=== PATIENT | male | born 1940 | race Caucasian/White ===

== ENCOUNTER → 2016-12-12 | Outpatient (CLI) | payer MEDICARE ==
[2016-12-12 10:10] LABS: Basophils # (A) 0.1 k/uL (0-0.2); Basophils % (A) 1 %; CH 33.1; CHCM 33.2; Eosinophils # (A) 0.4 k/uL (0-0.7); Eosinophils % (A) 6 %; HCT 47.8 % (39.0-53.0); HDW 2.51; HGB 15.7 gm/dL (13.0-17.5); Luc # (Auto) 0.22; Luc % (Auto) 3; Lymphocytes # (A) 1.4 k/uL (1.0-4.8); Lymphocytes % (A) 19 %; MCH 32.9 pg (25.0-35.0); MCHC 32.8 g/dL (31.0-37.0); MCV 100.2 fL (80.0-100.0); Mean Platelet Volume 6.4; Monocytes # (A) 0.5 k/uL (0-1.0); Monocytes % (A) 6 %; Neutrophils # (A) 4.8 k/uL (1.3-7.7); Neutrophils % (A) 65 %; RBC 4.77 m/uL (4.30-5.90); RDW 12.7 % (11.5-15.5); WBC 7.4 k/uL (3.8-10.6); WBC (Perox) 6.78
[2016-12-12 10:12] LABS: Prothrombin Time 29.1 sec (9.0-12.0)
[2016-12-12 10:32] LABS: Hemoglobin A1C 5.7 % (4.2-6.1)
[2016-12-12 13:36] LABS: ALT 37 U/L (21-72); AST 29 U/L (17-59); Alkaline Phosphatase 72 U/L (38-126); Anion Gap 12 mmol/L; Blood Urea Nitrogen 23 mg/dL (9-20); Calcium 9.8 mg/dL (8.4-10.2); Carbon Dioxide 27 mmol/L (22-30); Chloride 107 mmol/L (98-107); Cholesterol 165 mg/dL (<200); Glucose 129 mg/dL (74-99); HDL Cholesterol 46 mg/dL (40-60); Non-African American GFR(MDRD) >60 (>60 ml/min/1.73 sqM); Potassium 4.4 mmol/L (3.5-5.1); Sodium 146 mmol/L (137-145); Total Bilirubin 1.2 mg/dL (0.2-1.3); Total Protein 7.3 g/dL (6.3-8.2); Triglycerides 80 mg/dL (<150)
== END | disposition home or self-care (01) ==
LOC: LABWHC1 09:31
PROVIDERS: ATTEND Internal Medicine Critical Care Medicine
DX: I48.91 Unspecified atrial fibrillation (principal); I10 Essential (primary) hypertension; E55.9 Vitamin D deficiency, unspecified; E78.5 Hyperlipidemia, unspecified; Z12.5 Encounter for screening for malignant neoplasm of prostate; Z79.899 Other long term (current) drug therapy
CPT/HCPCS: 84439; 80061; 80053; 83036; 84443; 85025; 85610; 82306; 36415; G0103

== ENCOUNTER → 2017-03-27 | Outpatient (CLI) | payer MEDICARE | END | disposition home or self-care (01) | LOC: LABWHC1 14:23 | PROVIDERS: ATTEND Urology | DX: R97.20 Elevated prostate specific antigen [PSA] (principal) | CPT/HCPCS: 36415; 84153 ==

== ENCOUNTER → 2017-04-28 | Outpatient (CLI) | payer MEDICARE ==
[2017-04-28 12:11] LABS: INR 2.7 (<1.2)
[2017-04-28 12:12] LABS: Prothrombin Time 25.9 sec (9.0-12.0)
== END | disposition home or self-care (01) ==
LOC: LABWHC1 11:22
PROVIDERS: ATTEND Internal Medicine Critical Care Medicine
DX: I48.91 Unspecified atrial fibrillation (principal)
CPT/HCPCS: 36415; 85610

== ENCOUNTER → 2017-12-15 | Outpatient (CLI) | payer MEDICARE ==
[2017-12-15 11:16] LABS: INR 3.1 (<1.2); Prothrombin Time 27.6 sec (9.0-12.0)
[2017-12-15 11:37] LABS: T4, Free (Free Thyroxine) 1.12 ng/dL (0.78-2.19)
[2017-12-15 11:51] LABS: PSA Annual Screen 5.24 ng/mL (0.00-4.00)
== END | disposition home or self-care (01) ==
LOC: LABWHC1 10:07
PROVIDERS: ATTEND Internal Medicine Critical Care Medicine
DX: E78.5 Hyperlipidemia, unspecified (principal); I10 Essential (primary) hypertension; M10.9 Gout, unspecified; I48.91 Unspecified atrial fibrillation; Z12.5 Encounter for screening for malignant neoplasm of prostate
CPT/HCPCS: 84439; 80061; 84443; 85610; 36415; G0103

== ENCOUNTER → 2018-01-18 | Outpatient (CLI) | payer MEDICARE ==
[2018-01-18 13:36] LABS: T4, Free (Free Thyroxine) 1.42 ng/dL (0.78-2.19)
== END | disposition home or self-care (01) ==
LOC: LABWHC1 11:54
PROVIDERS: ATTEND Internal Medicine Critical Care Medicine
DX: E05.90 Thyrotoxicosis, unspecified without thyrotoxic crisis or storm (principal)
CPT/HCPCS: 36415; 84439; 84443; 84481

== ENCOUNTER 2018-03-07 19:03 | Observation (INO) | payer MEDICARE ==
[2018-03-07] MEDS ORDERED: NITROGLYCERIN OINT 1 INCH/GM PACKET TOPICAL STA (19:40)
[2018-03-07] MEDS ORDERED: MORPHINE SULFATE 2 MG/ML SYRINGE IVP STA (19:40)
[2018-03-07] MEDS ORDERED: ONDANSETRON 4 MG/2 ML VIAL IVP STA (19:40)
[2018-03-07] MEDS ORDERED: SODIUM CHLORIDE 0.9% 1,000 ML IV STA (19:40)
[2018-03-07] MEDS ORDERED: ASPIRIN 81 MG PO STA (19:40)
[2018-03-07 19:49] LABS: Basophils # (A) 0.1 k/uL (0-0.2); Basophils % (A) 1 %; Eosinophils # (A) 0.3 k/uL (0-0.7); Eosinophils % (A) 4 %; HCT 48.1 % (39.0-53.0); HGB 16.3 gm/dL (13.0-17.5); Lymphocytes # (A) 1.8 k/uL (1.0-4.8); Lymphocytes % (A) 25 %; MCH 32.5 pg (25.0-35.0); MCHC 33.9 g/dL (31.0-37.0); MCV 95.9 fL (80.0-100.0); Mean Platelet Volume 7.1; Monocytes # (A) 0.5 k/uL (0-1.0); Monocytes % (A) 6 %; Neutrophils # (A) 4.5 k/uL (1.3-7.7); Neutrophils % (A) 61 %; Platelet Count 221 k/uL (150-450); RBC 5.01 m/uL (4.30-5.90); RDW 12.7 % (11.5-15.5); WBC 7.4 k/uL (3.8-10.6)
[2018-03-07 19:58] LABS: ALT 41 U/L (21-72); AST 36 U/L (17-59); Albumin 4.3 g/dL (3.5-5.0); Alkaline Phosphatase 76 U/L (38-126); Anion Gap 10 mmol/L; Blood Urea Nitrogen 14 mg/dL (9-20); Calcium 9.8 mg/dL (8.4-10.2); Carbon Dioxide 28 mmol/L (22-30); Chloride 101 mmol/L (98-107); Glucose 103 mg/dL (74-99); Magnesium 1.7 mg/dL (1.6-2.3); Potassium 3.5 mmol/L (3.5-5.1); Sodium 139 mmol/L (137-145); Total Bilirubin 0.9 mg/dL (0.2-1.3); Total Protein 7.4 g/dL (6.3-8.2)
[2018-03-07 20:01] LABS: Creatine Kinase 107 U/L (55-170)
[2018-03-07 20:05] LABS: D-Dimer 0.21 mg/L FEU (<0.60); INR 2.6 (<1.2); Partial Thromboplastin Time 30.8 sec (22.0-30.0); Prothrombin Time 23.7 sec (9.0-12.0)
[2018-03-07 20:14] LABS: Troponin I <0.012 ng/mL (0.000-0.034)
--- NOTE | 2018-03-07 20:14 | XR ---
EXAMINATION TYPE: XR chest 2V DATE OF EXAM: 03/07/2018 COMPARISON: NONE HISTORY: Intermittent chest pain. Partial right pneumonectomy. TECHNIQUE: Frontal and lateral views of the chest are obtained. FINDINGS: Right hemithorax loss from prior partial right pneumonectomy is noted. Overlying horizonta l right hemithorax skin folds are seen. There is no focal air space opacity, pleural effusion, or pne umothorax seen. The cardiac silhouette size is upper limits of normal in size. The osseous structu res are intact. IMPRESSION: Operative changes of a partial right pneumonectomy. No acute cardiopulmonary process.
[2018-03-07 20:18] LABS: Creatine Kinase MB 2.6 ng/mL (0.0-2.4)
[2018-03-07] MEDS ORDERED: MORPHINE SULFATE 2 MG/ML SYRINGE IVP PRN (20:28)
[2018-03-07] MEDS ORDERED: ACETAMINOPHEN TAB 325 MG TAB PO PRN (20:28)
[2018-03-07] MEDS ORDERED: NITROGLYCERIN SL TABS 0.4 MG TAB SUBLINGUAL PRN (20:28)
[2018-03-07] MEDS ORDERED: WARFARIN 2.5 MG TAB PO SCH (20:45)
--- NOTE | 2018-03-07 20:48 | ED ---
Chest Pain HPI - General Chief Complaint: Chest Pain Stated Complaint: Chest Pain Time Seen by Provider: 03/07/18 19:25 Source: patient Mode of arrival: wheelchair Limitations: no limitations - History of Present Illness Initial Comments: 77 years old male had chest pain episodes about to 4 from each one was less than 1 minute and this is a first-time ever he had a chest pain episodes he does have a history of atrial fibrillation he has been taken his Coumadin religiously also has a history of hypertension. And numb he had a lung surgery done 3 years ago where they thought lung cancer but it was a abscess. He denies any headaches no blurred vision and slurred speech no shortness of breath he does have a bit of worsening of the pain with deep breaths no abdominal pain no frequency urgency dysuria no symptoms of TIA or CVA - Related Data Home Medications Medication Instructions Recorded Confirmed Levothyroxine Sodium [Synthroid] 75 mcg PO DAILY 03/07/18 03/07/18 Losartan/Hydrochlorothiazide 1 each PO DAILY 03/07/18 03/07/18 [Losartan-Hctz 100-25 mg Tab] Metoprolol Ji/Hydrochlorothiaz 1 each PO DAILY 03/07/18 03/07/18 [Metoprolol ER-Hctz 100-12.5 mg] Warfarin Sodium [Coumadin] 2.5 mg PO Q7D 03/07/18 03/07/18 Warfarin [Coumadin] 5 mg PO DAILY 03/07/18 03/07/18 Allergies Allergy/AdvReac Type Severity Reaction Status Date / Time No Known Allergies Allergy Verified 03/07/18 19:09 Review of Systems ROS Statement: Those systems with pertinent positive or pertinent negative responses have been documented in the HPI. ROS Other: All systems not noted in ROS Statement are negative. EKG Findings - EKG Comments: EKG Findings:: EKG is atrial fibrillation ventricular rate is 87 PA interval, QRS duration is 108 QT/QTc is 394/474 review of this EKG does not reveal any ST elevation or ST depression and atrial fibrillation is not new patient has a history of atrial fibrillation Past Medical History Past Medical History: Atrial Fibrillation, Hypertension, Thyroid Disorder History of Any Multi-Drug Resistant Organisms: None Reported Past Surgical History: Orthopedic Surgery Additional Past Surgical History / Comment(s): right lung removed Past Psychological History: No Psychological Hx Reported Smoking Status: Former smoker Past Alcohol Use History: Daily Past Drug Use History: None Reported General Exam - General Exam Comments Initial Comments: General: The patient is awake and alert, in no distress, and does not appear acutely ill. GCS is 15 Skin: Skin is warm and dry and no rashes or lesions are noted. Eye: Pupils are equal, round and reactive to light, extra-ocular movements are intact; there is normal conjunctiva bilaterally. Ears, nose, mouth and throat: There are moist mucous membranes and no oral lesions. Neck: The neck is supple, there is no tenderness him a no signs of any meningitis Cardiovascular: Noticed atrial fibrillation Respiratory: To auscultation bilateral, no rales rhonchi's noticed Gastrointestinal: Soft, non-distended, non-tender abdomen without masses or organomegaly noted. There is no rebound or guarding present. Bowel sounds are unremarkable. Back: There is no tenderness to palpation in the midline. There is no obvious deformity. Musculoskeletal: Normal ROM, no tenderness, There is no pedal edema. There is no calf tenderness or swelling. No cords were appreciated. Neurological: CN II-XII intact, Cranial nerves III through XII are intact. There are no obvious motor or sensory deficits. Coordination appears grossly intact. Speech is normal. Psychiatric: Cooperative, appropriate mood & affect, normal judgment. Limitations: no limitations Course Vital Signs 03/07/18 03/07/18 19:06 19:31 Temperature 97.9 F Pulse Rate 75 88 Respiratory 18 18 Rate Blood Pressure 164/99 176/108 O2 Sat by Pulse 98 99 Oximetry Patient is reassessed at term 824, EKG has atrial fibrillation d-dimer is unremarkable INR is 2.6 troponin is negative compressive metabolic panel and CBC are unremarkable chest x-ray ruled out any pneumothorax or pneumonia. His findings were discussed with the patient considering he is 77 and now he has a history of atrial fibrillation and hypertension and now 4-5 episodes of chest pain though it didn't last long we need to admit him for cardiology consult and 3 sets of cardiac markers and Patient agreed with that . Her Dr. Waters patient be admitted to .( Dr Rees) Disposition Clinical Impression: Chest pain Disposition: ADMITTED IP TO THIS HOSP Condition: Good Referrals: Av Butler DO [Primary Care Provider] - 1-2 days
[2018-03-07 22:15] VITALS: RESP 18
[2018-03-07 23:53] LABS: Cholesterol 184 mg/dL (<200); HDL Cholesterol 41 mg/dL (40-60); LDL Cholesterol,Calculated 83 mg/dL (0-99); Triglycerides 300 mg/dL (<150)
[2018-03-08 01:34] LABS: Creatine Kinase MB 1.7 ng/mL (0.0-2.4)
[2018-03-08 07:03] VITALS: TEMP 98.2
[2018-03-08 08:00] LABS: Creatine Kinase 76 U/L (55-170)
[2018-03-08] MEDS ORDERED: WARFARIN 2.5 MG TAB PO SCH (08:01)
[2018-03-08 08:13] LABS: Creatine Kinase MB 1.7 ng/mL (0.0-2.4); Troponin I <0.012 ng/mL (0.000-0.034)
--- NOTE | 2018-03-08 08:38 | P.CRDCN ---
History of Present Illness Consult date: 03/08/18 Chief complaint: Chest discomfort History of present illness: This is a pleasant 77-year-old gentleman with a past medical history significant for chronic atrial fibrillation on oral anticoagulation was Coumadin as well as history of lung cancer where he underwent lung surgery long time ago, presented to the hospital complaining of chest discomfort. The patient does not have any established history of coronary artery disease nor diabetes. He does follows Dr. VC Guzman in the office on regular basis. He was in his usual state of health until yesterday when he was at home watching TV and developed chest discomfort, over the left side of the chest, as a sharp kind of discomfort, lasted only for a few seconds. He did not have any shortness of breath, sweating, nausea or vomiting, dizziness or lightheadedness , or syncope. No more episode of chest discomfort since the first one. The EKG showed atrial fibrillation. The cardiac enzymes were checked and came in to be unremarkable. The chest x-ray did not show any acute abnormalities. The patient was ruled out for acute coronary event. The patient did have a stress test about 2 weeks ago in our office. He expressed the wishes that he would like to go home. He has been walking up and around and he has been pain- free. I feel that the patient can be discharged home and he will follow-up with Dr. VC Guzman in the office as an outpatient. Past Medical History Past Medical History: Atrial Fibrillation, Hypertension, Thyroid Disorder History of Any Multi-Drug Resistant Organisms: None Reported Past Surgical History: Orthopedic Surgery Additional Past Surgical History / Comment(s): right lung removed Past Psychological History: No Psychological Hx Reported Smoking Status: Former smoker Past Alcohol Use History: Daily Past Drug Use History: None Reported Medications and Allergies Home Medications Medication Instructions Recorded Confirmed Type Levothyroxine Sodium [Synthroid] 75 mcg PO HS 03/07/18 03/08/18 History Losartan/Hydrochlorothiazide 1 tab PO DAILY 03/07/18 03/08/18 History [Losartan-Hctz 100-25 mg Tab] Warfarin Sodium [Coumadin] 2.5 mg PO TU 03/07/18 03/08/18 History Warfarin [Coumadin] 5 mg PO SUMOWETHFRSA 03/07/18 03/08/18 History Metoprolol Succinate (ER) [Toprol 100 mg PO DAILY 03/08/18 03/08/18 History Xl] Allergies Allergy/AdvReac Type Severity Reaction Status Date / Time No Known Allergies Allergy Verified 03/08/18 07:37 Physical Exam Vitals: Vital Signs Temp Pulse Resp BP Pulse Ox 03/08/18 07:14 97 03/08/18 07:01 98.2 F 74 18 148/94 97 03/08/18 05:20 96.9 F L 86 18 159/82 98 03/08/18 01:20 97.1 F L 91 18 167/94 97 03/07/18 22:13 97.5 F L 61 18 150/87 99 03/07/18 20:59 77 16 154/92 98 03/07/18 20:19 82 18 166/96 98 03/07/18 19:31 88 18 176/108 99 03/07/18 19:06 97.9 F 75 18 164/99 98 Intake and Output 03/07/18 03/08/18 03/08/18 22:59 06:59 14:59 Other: # Voids 2 2 Weight 102.058 kg - Constitutional General appearance: no acute distress - Respiratory Respiratory: right: diminished, left: CTA - Cardiovascular Rhythm: irregularly irregular Heart sounds: normal: S1, S2 Abnormal Heart Sounds: systolic murmur Results 03/07/18 19:20 03/07/18 19:20 Cardiac Enzymes 03/07/18 03/07/18 03/08/18 Range/Units 19:20 19:20 00:58 AST 36 (17-59) U/L CK-MB (CK-2) 2.6 H* 1.7 (0.0-2.4) ng/mL Troponin I <0.012 Cancelled (0.000-0.034) ng/mL 03/08/18 03/08/18 Range/Units 02:10 07:19 AST (17-59) U/L CK-MB (CK-2) 1.7 (0.0-2.4) ng/mL Troponin I <0.012 <0.012 (0.000-0.034) ng/mL Coagulation 03/07/18 Range/Units 19:20 PT 23.7 H (9.0-12.0) sec APTT 30.8 H (22.0-30.0) sec Lipids 03/07/18 Range/Units 19:20 Triglycerides 300 H (<150) mg/dL Cholesterol 184 (<200) mg/dL HDL Cholesterol 41 (40-60) mg/dL CBC 03/07/18 Range/Units 19:20 WBC 7.4 (3.8-10.6) k/uL RBC 5.01 (4.30-5.90) m/uL Hgb 16.3 (13.0-17.5) gm/dL Hct 48.1 (39.0-53.0) % Plt Count 221 (150-450) k/uL Comprehensive Metabolic Panel 03/07/18 Range/Units 19:20 Sodium 139 (137-145) mmol/L Potassium 3.5 (3.5-5.1) mmol/L Chloride 101 (98-107) mmol/L Carbon Dioxide 28 (22-30) mmol/L BUN 14 (9-20) mg/dL Creatinine 0.92 (0.66-1.25) mg/dL Glucose 103 H (74-99) mg/dL Calcium 9.8 (8.4-10.2) mg/dL AST 36 (17-59) U/L ALT 41 (21-72) U/L Alkaline Phosphatase 76 (38-126) U/L Total Protein 7.4 (6.3-8.2) g/dL Albumin 4.3 (3.5-5.0) g/dL Current Medications Generic Name Dose Route Start Last Admin Trade Name Freq PRN Reason Stop Dose Admin Acetaminophen 650 mg 03/07/18 20:28 Tylenol Tab PO Q4HR PRN Pain Amlodipine Besylate 5 mg 03/08/18 09:00 Norvasc PO DAILY [facility] Aspirin 325 mg 03/08/18 09:00 Aspirin PO DAILY [facility] HCTZ/Losartan Potassium 2 each 03/08/18 09:00 Hyzaar 50-12.5 PO DAILY [facility] Hydrochlorothiazide 12.5 mg 03/08/18 09:00 Hydrodiuril PO Mo [facility] Levothyroxine Sodium 75 mcg 03/08/18 09:00 Synthroid PO DAILY@0630 [facility] Metoprolol Succinate 100 mg 03/08/18 09:00 Toprol Xl PO Mo [facility] Morphine Sulfate 2 mg 03/07/18 20:28 Morphine Sulfate (Inj) IVP Q5M PRN Chest Pain Nitroglycerin 0.4 mg 03/07/18 20:28 Nitrostat SUBLINGUAL Q5M PRN Chest Pain Warfarin Sodium 5 mg 03/08/18 18:00 Coumadin PO SuMoWeThFrSa@1800 [facility] Warfarin Sodium 2.5 mg 03/08/18 08:01 Coumadin PO Tu@1800 [facility] Intake and Output 03/07/18 03/08/18 03/08/18 22:59 06:59 14:59 Other: # Voids 2 2 Weight 102.058 kg 03/07/18 19:20 03/07/18 19:20 Assessment and Plan Assessment: Assessment #1 atypical chest discomfort #2 chronic atrial fibrillation #3 history of lung cancer Plan #1 the patient was ruled out for acute coronary event #2 from a perivascular standpoint of view, he can be discharged home. The patient expressed the wishes that he would like to go home. Thank you for allowing us participate in his care
[2018-03-08] MEDS ORDERED: LEVOTHYROXINE 75 MCG TAB PO SCH (09:00)
[2018-03-08] MEDS ORDERED: ASPIRIN 325 MG TAB PO SCH (09:00)
[2018-03-08] MEDS ORDERED: LOSARTAN-HCTZ 50-12.5 MG 1 EACH TAB PO SCH (09:00)
[2018-03-08] MEDS ORDERED: METOPROLOL SUCCINATE (ER) 100 MG TAB.ER.24H PO SCH (09:00)
[2018-03-08] MEDS ORDERED: HYDROCHLOROTHIAZIDE 12.5 MG CAP PO SCH (09:00)
[2018-03-08] MEDS ORDERED: amLODIPine 5 MG TAB PO SCH (09:00)
[2018-03-08 09:21] VITALS: BP 149/89; PULSE 95
--- NOTE | 2018-03-08 10:38 | P.HPIM ---
History of Present Illness This is a pleasant 77 years old male with past medical history of atrial fibrillation's on Coumadin, hypertension, hypothyroidism who presents of chest discomfort/pain, patient states his pains lasted only for 2 seconds on the left side of his chest nonradiating unknown severity, nonspecific character, not associated with dyspnea. No change in urine or bowel habits. No fever. No dizziness or palpitation. No sweating. Patient currently is chest pain-free. No other complaints. Patient has been evaluated by punch card operator and cleared him for discharge. Patient states his back to his baseline and he wants to go home. Vital's labs and medication were viewed, patient to continue his home medication Review of Systems CONSTITUTIONAL: No fever, no malaise, no fatigue. HEENT: No recent visual problems or hearing problems. Denied any sore throat. CARDIOVASCULAR: No orthopnea, PND, no palpitations, no syncope. PULMONARY: No shortness of breath, no cough, no hemoptysis. GASTROINTESTINAL: No diarrhea, no nausea, no vomiting, no abdominal pain. Normoactive bowel sounds. NEUROLOGICAL: No headaches, no weakness, no numbness. HEMATOLOGICAL: Denies any bleeding or petechiae. GENITOURINARY: Denies any burning micturition, frequency, or urgency. MUSCULOSKELETAL/RHEUMATOLOGICAL: Denies any joint pain, swelling, or any muscle pain. ENDOCRINE: Denies any polyuria or polydipsia. Past Medical History Past Medical History: Atrial Fibrillation, Hypertension, Thyroid Disorder History of Any Multi-Drug Resistant Organisms: None Reported Past Surgical History: Orthopedic Surgery Additional Past Surgical History / Comment(s): right lung removed Past Psychological History: No Psychological Hx Reported Smoking Status: Former smoker Past Alcohol Use History: Daily Past Drug Use History: None Reported Medications and Allergies Home Medications Medication Instructions Recorded Confirmed Type Levothyroxine Sodium [Synthroid] 75 mcg PO HS 03/07/18 03/08/18 History Losartan/Hydrochlorothiazide 1 tab PO DAILY 03/07/18 03/08/18 History [Losartan-Hctz 100-25 mg Tab] Warfarin Sodium [Coumadin] 2.5 mg PO TU 03/07/18 03/08/18 History Warfarin [Coumadin] 5 mg PO SUMOWETHFRSA 03/07/18 03/08/18 History Metoprolol Succinate (ER) [Toprol 100 mg PO DAILY 03/08/18 03/08/18 History XL] amLODIPine [Norvasc] 5 mg PO DAILY #30 tab 03/08/18 Rx Allergies Allergy/AdvReac Type Severity Reaction Status Date / Time No Known Allergies Allergy Verified 03/08/18 07:37 Physical Exam Vitals: Vital Signs Temp Pulse Pulse Resp BP BP Pulse Ox 03/08/18 09:20 95 18 149/89 98 03/08/18 07:14 97 03/08/18 07:01 98.2 F 74 18 148/94 97 03/08/18 05:20 96.9 F L 86 18 159/82 98 03/08/18 01:20 97.1 F L 91 18 167/94 97 03/07/18 22:13 97.5 F L 61 18 150/87 99 03/07/18 20:59 77 16 154/92 98 03/07/18 20:19 82 18 166/96 98 03/07/18 19:31 88 18 176/108 99 03/07/18 19:06 97.9 F 75 18 164/99 98 Intake and Output 03/07/18 03/08/18 03/08/18 22:59 06:59 14:59 Other: # Voids 2 2 Weight 102.058 kg GENERAL: The patient is alert and oriented x3, not in any acute distress. Well developed, well nourished. HEENT: Pupils are round and equally reacting to light. EOMI. No scleral icterus. No conjunctival pallor. Normocephalic, atraumatic. No pharyngeal erythema. No thyromegaly. CARDIOVASCULAR: S1 and S2 present. No murmurs, rubs, or gallops. PULMONARY: Chest is clear to auscultation, no wheezing or crackles. ABDOMEN: Soft, nontender, nondistended, normoactive bowel sounds. No palpable organomegaly. MUSCULOSKELETAL: No joint swelling or deformity. EXTREMITIES: No cyanosis, clubbing, or pedal edema. NEUROLOGICAL: Gross neurological examination did not reveal any focal deficits. SKIN: No rashes. Results CBC & Chem 7: 03/07/18 19:20 03/07/18 19:20 Labs: Abnormal Lab Results - Last 24 Hours (Table) 03/07/18 03/07/18 03/07/18 Range/Units 19:20 19:20 19:20 PT 23.7 H (9.0-12.0) sec INR 2.6 H (<1.2) APTT 30.8 H (22.0-30.0) sec Glucose 103 H (74-99) mg/dL CK-MB (CK-2) 2.6 H* (0.0-2.4) ng/mL Triglycerides (<150) mg/dL 03/07/18 Range/Units 19:20 PT (9.0-12.0) sec INR (<1.2) APTT (22.0-30.0) sec Glucose (74-99) mg/dL CK-MB (CK-2) (0.0-2.4) ng/mL Triglycerides 300 H (<150) mg/dL Assessment and Plan Assessment: Chest pain, of 2 seconds. Resolved completely History of chronic atrial fibrillation Hypertension Hypothyroidism Plan: Continue with same treatment. Continue with symptomatic treatment. Resume home medication. Resume Coumadin and follow up INR. Cardiology consult is appreciated. Further recommendations based on the clinical course. Patient was cleared by cardiology for discharge
--- NOTE | 2018-03-08 10:42 | P.DS ---
Providers Date of admission: 03/07/18 20:50 Attending physician: Dee Stephenson MD Consults: 03/07/18 20:28 Consult Physician Urgent Consulting Provider: Jaylen Waters Consult Reason/Comments: Chronic lung disease Do you want consulting provider notified?: Yes Consult Physician Urgent Consulting Provider: Param Witt Consult Reason/Comments: Chest pain Do you want consulting provider notified?: Yes Primary care physician: [facility] Course: This is a pleasant 77 years old male with past medical history of atrial fibrillation, hypertension, hypothyroidism. He presents because of 2 seconds duration of chest pain on the left side which was resolved completely. He has negative troponins. EKG was reviewed by the jawbone puller. He has negative stress test in the cardiology office as per note. Cardiology evaluated the patient in the recommended that he can be discharged home. Patient wants to go home. Patient states he wants back to his baseline. Cardiology cleared him for discharge. Problems and management plan discussed with the patient. Patient is found stable and can be discharged home however he needs follow-up as an outpatient and he has appointment to see his PCP Dr. Butler, and jawbone puller Dr. Pratt, This week and he has the appointment details and contact information at home See examination from today Time spent more than 35 minutes Patient Condition at Discharge: Good Plan - Discharge Summary New Discharge Prescriptions: New amLODIPine [Norvasc] 5 mg PO DAILY #30 tab Continue Warfarin [Coumadin] 5 mg PO SUMOWETH Levothyroxine Sodium [Synthroid] 75 mcg PO HS Warfarin Sodium [Coumadin] 2.5 mg PO TU Losartan/Hydrochlorothiazide [Losartan-Hctz 100-25 mg Tab] 1 tab PO DAILY Metoprolol Succinate (ER) [Toprol XL] 100 mg PO DAILY Discharge Medication List Levothyroxine Sodium [Synthroid] 75 mcg PO HS 03/07/18 [History] Losartan/Hydrochlorothiazide [Losartan-Hctz 100-25 mg Tab] 1 tab PO DAILY [History] Warfarin Sodium [Coumadin] 2.5 mg PO TU 03/07/18 [History] Warfarin [Coumadin] 5 mg PO SUMOWETHFRSA 03/07/18 [History] Metoprolol Succinate (ER) [Toprol XL] 100 mg PO DAILY 03/08/18 [History] amLODIPine [Norvasc] 5 mg PO DAILY #30 tab 03/08/18 [Rx] Follow up Appointment(s)/Referral(s): Av Butler DO [Primary Care Provider] - 3 Days Finn Guzman MD [Family Provider] - 1 Week Ambulatory/Diagnostic Orders: Prothrombin Time INR [LAB.AMB] Time Frame: 3 Days, Location: None Selected Patient Instructions/Handouts: Amlodipine (By mouth), Chest Pain (DC) Activity/Diet/Wound Care/Special Instructions: Diet: low cholesterol, cardiac Activity: limited till F/U
[2018-03-08] MEDS ORDERED: WARFARIN 5 MG TAB PO SCH (18:00)
== END 2018-03-08 10:45 | disposition home or self-care (01) ==
LOC: EC 19:03 → 3OBS 20:50
PROVIDERS: ADMIT Internal Medicine; ATTEND Internal Medicine
DX: R07.89 Other chest pain (principal); I48.2 Chronic atrial fibrillation; I10 Essential (primary) hypertension; E03.9 Hypothyroidism, unspecified; Z79.01 Long term (current) use of anticoagulants; Z79.890 Hormone replacement therapy; Z79.899 Other long term (current) drug therapy; Z90.2 Acquired absence of lung [part of]; Z87.891 Personal history of nicotine dependence; Z85.118 Personal history of other malignant neoplasm of bronchus and lung
CPT/HCPCS: 99285 ×2; 36415; 94760; 93005 ×2; 85379; 80061; 80053; 82550 ×2; 82553 ×2; 83735; 84443; 84484 ×2; 85025; 85610; 85730; 71046; G0378 ×2

== ENCOUNTER → 2018-12-03 | Outpatient (CLI) | payer MEDICARE ==
[2018-12-03 10:21] LABS: Basophils # (A) 0.1 k/uL (0-0.2); Basophils % (A) 1 %; Eosinophils # (A) 0.3 k/uL (0-0.7); Eosinophils % (A) 5 %; HGB 16.2 gm/dL (13.0-17.5); Lymphocytes # (A) 1.2 k/uL (1.0-4.8); Lymphocytes % (A) 19 %; MCH 32.5 pg (25.0-35.0); MCV 98.3 fL (80.0-100.0); Mean Platelet Volume 6.9; Monocytes # (A) 0.4 k/uL (0-1.0); Monocytes % (A) 6 %; Neutrophils # (A) 4.3 k/uL (1.3-7.7); Neutrophils % (A) 66 %; Platelet Count 221 k/uL (150-450); RBC 4.99 m/uL (4.30-5.90); WBC 6.5 k/uL (3.8-10.6)
[2018-12-03 16:43] LABS: Albumin 4.2 g/dL (3.80-4.90); Albumin/Globulin Ratio 1.68 (1.60-3.17); Anion Gap 9.8 mmol/L (4.00-12.00); Calcium 9.7 mg/dL (8.7-10.3); Carbon Dioxide 28.2 mmol/L (21.6-31.8); Globulin 2.5 g/dL (1.6-3.3); LDL Cholesterol,Calculated 100.2 mg/dL (0.0-131.0); Potassium 3.5 mmol/L (3.5-5.5); Total Bilirubin 1.6 mg/dL (0.2-1.2); Total Protein 6.7 g/dL (6.2-8.2); Uric Acid 6.1 mg/dL (3.7-8.7); VLDL Calculation 20.8 mg/dL (5.00-40.00)
[2018-12-03 16:51] LABS: T4, Free (Free Thyroxine) 1.3 ng/dL (0.80-1.80)
== END | disposition home or self-care (01) ==
LOC: LABWHC1 09:22
PROVIDERS: ATTEND Internal Medicine Critical Care Medicine
DX: I48.91 Unspecified atrial fibrillation (principal); E78.5 Hyperlipidemia, unspecified; M10.9 Gout, unspecified; E03.9 Hypothyroidism, unspecified
CPT/HCPCS: 84439; 80061; 80053; 84443; 84550; 85025; 82306; 83036; 36415; G0103

== ENCOUNTER → 2020-01-13 | Outpatient (CLI) | payer MEDICARE ==
[2020-01-13 11:29] LABS: Basophils # (A) 0.1 k/uL (0-0.2); Basophils % (A) 1 %; Eosinophils # (A) 0.4 k/uL (0-0.7); Eosinophils % (A) 5 %; HCT 47.7 % (39.0-53.0); HGB 15.8 gm/dL (13.0-17.5); Lymphocytes # (A) 1.4 k/uL (1.0-4.8); Lymphocytes % (A) 20 %; MCH 32.9 pg (25.0-35.0); MCHC 33.2 g/dL (31.0-37.0); Mean Platelet Volume 6.9; Monocytes # (A) 0.5 k/uL (0-1.0); Monocytes % (A) 7 %; Neutrophils # (A) 4.5 k/uL (1.3-7.7); Neutrophils % (A) 65 %; Platelet Count 232 k/uL (150-450); RBC 4.82 m/uL (4.30-5.90); RDW 12.9 % (11.5-15.5); WBC 6.9 k/uL (3.8-10.6)
[2020-01-13 11:36] LABS: INR 3.2 (<1.2); Prothrombin Time 31.1 sec (9.0-12.0)
[2020-01-13 16:54] LABS: African American GFR (CKD) 93.2 (60.0-200.0); Albumin 4.1 g/dL (3.80-4.90); Albumin/Globulin Ratio 1.64 (1.60-3.17); Anion Gap 13.5 mmol/L (4.00-12.00); BUN/Creat Ratio 14.44 Ratio (12.00-20.00); Bilirubin, Conjugated 0.5 mg/dL (0.20-0.40); Calcium 9.4 mg/dL (8.7-10.3); Carbon Dioxide 23.5 mmol/L (21.6-31.8); Chol/HDL Ratio 3.21; Globulin 2.5 g/dL (1.6-3.3); LDL Cholesterol,Calculated 89.4 mg/dL (0.0-131.0); Non-African American GFR(CKD) 80.4 (60.0-200.0); Potassium 3.6 mmol/L (3.5-5.5); Total Bilirubin 1.5 mg/dL (0.2-1.2); Total Protein 6.6 g/dL (6.2-8.2); VLDL Calculation 14.6 mg/dL (5.00-40.00)
[2020-01-13 17:01] LABS: T4, Free (Free Thyroxine) 1.4 ng/dL (0.80-1.80)
[2020-01-13 17:25] LABS: Hemoglobin A1C 5.9 % (4.0-6.0)
== END | disposition home or self-care (01) ==
LOC: LABWHC1 09:42
PROVIDERS: ATTEND Urology
DX: Z00.00 Encounter for general adult medical examination without abnormal findings (principal); Z79.01 Long term (current) use of anticoagulants; E78.5 Hyperlipidemia, unspecified; E03.9 Hypothyroidism, unspecified; R97.20 Elevated prostate specific antigen [PSA]
CPT/HCPCS: 36415; 80053; 80061; 82248; 83036; 84153; 84439; 84443; 85025; 85610

== ENCOUNTER → 2020-12-17 | Outpatient (CLI) | payer MEDICARE | END | disposition home or self-care (01) | LOC: LABWHC1 10:00 | PROVIDERS: ATTEND Urology | DX: Z00.00 Encounter for general adult medical examination without abnormal findings (principal); E78.5 Hyperlipidemia, unspecified; I10 Essential (primary) hypertension; E55.9 Vitamin D deficiency, unspecified; R97.20 Elevated prostate specific antigen [PSA]; Z79.899 Other long term (current) drug therapy | CPT/HCPCS: 36415; 84153 ==

== ENCOUNTER → 2020-12-31 | Outpatient (CLI) | payer MEDICARE ==
[2020-12-31 16:00] LABS: Basophils # (A) 0.06 X 10*3/uL (0.00-0.10); Basophils % (A) 0.8 %; Eosinophils # (A) 0.47 X 10*3/uL (0.04-0.35); Eosinophils % (A) 6.3 %; HCT 46.9 % (39.6-50.0); HGB 14.9 g/dL (13.0-17.0); Lymphocytes # (A) 1.61 X 10*3/uL (0.90-5.00); Lymphocytes % (A) 21.5 %; MCH 32.3 pg (27.0-32.0); MCHC 31.8 g/dL (32.0-37.0); MCV 101.7 fL (80.0-97.0); Mean Platelet Volume 9.8 fL (9.5-12.2); Monocytes # (A) 0.58 X 10*3/uL (0.20-1.00); Monocytes % (A) 7.7 %; Neutrophils # (A) 4.76 X 10*3/uL (1.80-7.70); Neutrophils % (A) 63.4 %; Platelet Count 214 X 10*3/uL (140-440); RBC 4.61 X 10*6/uL (4.40-5.60); RDW 12.4 % (11.5-14.5)
[2020-12-31 18:52] LABS: African American GFR (CKD) 92.5 (60.0-200.0); Albumin 4.2 g/dL (3.80-4.90); Albumin/Globulin Ratio 1.5 (1.60-3.17); Anion Gap 9.6 mmol/L (4.00-12.00); BUN/Creat Ratio 12.22 Ratio (12.00-20.00); Calcium 9.9 mg/dL (8.7-10.3); Carbon Dioxide 26.4 mmol/L (21.6-31.8); Chol/HDL Ratio 3.02; Globulin 2.8 g/dL (1.6-3.3); LDL Cholesterol,Calculated 86.4 mg/dL (0.0-131.0); Non-African American GFR(CKD) 79.8 (60.0-200.0); Potassium 3.9 mmol/L (3.5-5.5); VLDL Calculation 12.6 mg/dL (5.00-40.00)
[2020-12-31 19:00] LABS: T4, Free (Free Thyroxine) 1.2 ng/dL (0.80-1.80)
== END | disposition home or self-care (01) ==
LOC: LABWHC1 08:53
PROVIDERS: ATTEND Internal Medicine Critical Care Medicine
DX: Z00.00 Encounter for general adult medical examination without abnormal findings (principal); I48.91 Unspecified atrial fibrillation; I10 Essential (primary) hypertension; M10.9 Gout, unspecified; E78.5 Hyperlipidemia, unspecified; E03.9 Hypothyroidism, unspecified; M19.079 Primary osteoarthritis, unspecified ankle and foot
CPT/HCPCS: 36415; 80053; 80061; 82306; 83036; 84439; 84443; 85025

== ENCOUNTER → 2021-06-03 | Outpatient (CLI) | payer MEDICARE | END | disposition home or self-care (01) | LOC: LABWHC1 13:13 | PROVIDERS: ATTEND Radiology Radiation Oncology | DX: C61 Malignant neoplasm of prostate (principal) | CPT/HCPCS: 36415; 84153 ==

== ENCOUNTER → 2021-12-11 | Outpatient (CLI) | payer MEDICARE ==
[2021-12-11 14:50] LABS: Basophils # (A) 0.04 X 10*3/uL (0.00-0.10); Basophils % (A) 0.7 %; Eosinophils # (A) 0.38 X 10*3/uL (0.04-0.35); Eosinophils % (A) 6.6 %; HCT 42.1 % (39.6-50.0); HGB 13.8 g/dL (13.0-17.0); Immature Grans, Automated 0.2 %; Lymphocytes # (A) 1.02 X 10*3/uL (0.90-5.00); Lymphocytes % (A) 17.8 %; MCH 33.7 pg (27.0-32.0); MCHC 32.8 g/dL (32.0-37.0); MCV 102.7 fL (80.0-97.0); Mean Platelet Volume 9.9 fL (9.5-12.2); Monocytes # (A) 0.63 X 10*3/uL (0.20-1.00); NRBC Per 100 WBC 0 /100 WBCS (0.0-0.0); Neutrophils # (A) 3.66 X 10*3/uL (1.80-7.70); Neutrophils % (A) 63.7 %; Platelet Count 185 X 10*3/uL (140-440); RDW 12.3 % (11.5-14.5); WBC 5.74 X 10*3/uL (4.50-10.00)
[2021-12-11 15:51] LABS: African American GFR (CKD) 94.5 (60.0-200.0); Albumin 4.2 g/dL (3.8-4.9); Albumin/Globulin Ratio 1.63 (1.60-3.17); Blood Urea Nitrogen 12.6 mg/dL (9.0-27.0); Calcium 9.7 mg/dL (8.7-10.3); Carbon Dioxide 28.2 mmol/L (20.0-27.5); Globulin 2.6 g/dL (1.6-3.3); HDL Cholesterol 53.8 mg/dL (40.00-60.00); Non-African American GFR(CKD) 81.5 (60.0-200.0); Potassium 4.2 mmol/L (3.5-5.5); T4, Free (Free Thyroxine) 1.76 ng/dL (0.800-1.800); Total Bilirubin 0.8 mg/dL (0.30-1.20); Total Protein 6.8 g/dL (6.2-8.2); Triglycerides 41.2 mg/dL (0.00-149.00)
[2021-12-11 16:14] LABS: Chol/HDL Ratio 2.71 Ratio; LDL Cholesterol,Direct Reflex 82.7 mg/dL (0.00-129.00)
== END | disposition home or self-care (01) ==
LOC: LABWHC1 08:35
PROVIDERS: ATTEND Internal Medicine Critical Care Medicine
DX: I10 Essential (primary) hypertension (principal); I48.91 Unspecified atrial fibrillation; E78.5 Hyperlipidemia, unspecified; E55.9 Vitamin D deficiency, unspecified; E03.9 Hypothyroidism, unspecified; M10.9 Gout, unspecified
CPT/HCPCS: 36415; 80053; 80061; 82306; 83036; 83721; 84439; 84443; 85025

== ENCOUNTER → 2021-12-24 | Outpatient (CLI) | payer MEDICARE | END | disposition home or self-care (01) | LOC: LABWHC1 09:03 | PROVIDERS: ATTEND Radiology Radiation Oncology | DX: C61 Malignant neoplasm of prostate (principal); R97.20 Elevated prostate specific antigen [PSA] | CPT/HCPCS: 36415; 84153 ==

== ENCOUNTER → 2022-04-08 | Outpatient (CLI) | payer MEDICARE | END | disposition home or self-care (01) | LOC: LABWHC1 15:31 | PROVIDERS: ATTEND Radiology Radiation Oncology | DX: C61 Malignant neoplasm of prostate (principal); R97.20 Elevated prostate specific antigen [PSA] | CPT/HCPCS: 36415; 84153 ==

== ENCOUNTER 2022-06-09 11:27 | Emergency (ER) | payer MEDICARE ==
--- NOTE | 2022-06-09 13:01 | ED ---
General Adult HPI - General Chief complaint: Abdominal Pain Stated complaint: possible hernia Time Seen by Provider: 06/09/22 12:29 Source: patient Mode of arrival: ambulatory Limitations: no limitations - History of Present Illness Initial comments: Dictation was produced using [employer] dictation software. please excuse any grammatical, word or spelling errors. Chief Complaint: 81-year-old male presents emergency department for concerns of hernia History of Present Illness: Patient is a 1-year-old male presents emergency department for right groin hernia. Patient states that he was told by his primary care doctor that he had a right groin hernia. He was not given any follow-up. He decided come to the emergency department today to be evaluated. Patient denies any nausea or vomiting. No abdominal pain. No diarrhea. Maki ent has any active pain at this time. He states that his symptoms are worse whenever he tries to ambulate. No urinary symptoms. The ROS documented in this emergency department record has been reviewed and confirmed by me. Those systems with pertinent positive or negative responses have been documented in the HPI. All other systems are other negative and/or noncontributory. PHYSICAL EXAM: General Impression: Alert and oriented x3, not in acute distress HEENT: Normocephalic atraumatic, extra-ocular movements intact, pupils equal and reactive to light bilaterally, mucous membranes moist. Cardiovascular: Heart regular rate and rhythm Chest: Able to complete full sentences, no retractions, no tachypnea Abdomen: abdomen soft, non-tender, non-distended, no organomegaly, small palpable mass to the right groin with Valsalva, mass does produce while laying supine Musculoskeletal: Pulses present and equal in all extremities, no peripheral edema Motor: no focal deficits noted Neurological: CN II-XII grossly intact, no focal motor or sensory deficits noted Skin: Intact with no visualized rashes Psych: Normal affect and mood ED course: 81-year-old male presents emergency Department with groin pain and suspected right groin hernia. Signs upon arrival are within acceptable limits. Patient does not have any features of abdominal emergency related to hernia. He is well-appearing at the bedside without any signs of incarceration or strangulation. Laboratory evaluation obtained. CBC, metabolic panel, abdominal labs are negative. Ultrasound of the groin shows fat-containing hernia at the right groin that increases in size with Valsalva. Abdomen evaluation obtained. CBC, metabolic abdominal labs are negative. No lifting acidosis. Ultrasound of the groin shows fat-containing right inguinal hernia is more prominent with Valsalva. Patient reevaluated at bedside 5 in stable medical condition. Patient be discharged. He does have an appointment with general surgery. Advise patient to obtain a hernia belt to help with the symptoms. Return precautions discussed. Patient agreed with discharge. - Related Data Home Medications Medication Instructions Recorded Confirmed Levothyroxine Sodium [Synthroid] 75 mcg PO DAILY@0600 03/07/18 06/09/22 Cholecalciferol [Vitamin D3 (125 125 mcg PO DAILY 06/09/22 06/09/22 Mcg = 5000 Iu)] Losartan Potassium [Cozaar] 100 mg PO DAILY 06/09/22 06/09/22 Rivaroxaban [Xarelto] 20 mg PO DAILY@199906/09/22 06/09/22 Tamsulosin HCl [Flomax] 0.4 mg PO HS 06/09/22 06/09/22 Vit C/E/Zn/Coppr/Lutein/Zeaxan 1 cap PO BID 06/09/22 06/09/22 [Preservision Areds 2 Softgel] atenoloL [Tenormin] 25 mg PO HS 06/09/22 06/09/22 atenoloL [Tenormin] 50 mg PO DAILY 06/09/22 06/09/22 hydroCHLOROthiazide [Hydrodiuril] 25 mg PO DAILY 06/09/22 06/09/22 Allergies Allergy/AdvReac Type Severity Reaction Status Date / Time No Known Allergies Allergy Verified 06/09/22 14:18 Review of Systems ROS Statement: Those systems with pertinent positive or pertinent negative responses have been documented in the HPI. ROS Other: All systems not noted in ROS Statement are negative. Past Medical History Past Medical History: Atrial Fibrillation, Hypertension, Thyroid Disorder History of Any Multi-Drug Resistant Organisms: None Reported Past Surgical History: Orthopedic Surgery Additional Past Surgical History / Comment(s): right lung removed Past Psychological History: No Psychological Hx Reported Past Alcohol Use History: Daily Past Drug Use History: None Reported General Exam Limitations: no limitations Course Vital Signs 06/09/22 11:40 Temperature 97.7 F Pulse Rate 96 Respiratory 16 Rate Blood Pressure 150/94 O2 Sat by Pulse 98 Oximetry Medical Decision Making - Lab Data Result diagrams: 06/09/22 13:00 06/09/22 13:40 Lab Results 06/09/22 06/09/22 06/09/22 Range/Units 13:00 13:40 13:40 WBC 7.0 (3.8-10.6) k/uL RBC 4.45 (4.30-5.90) m/uL Hgb 15.5 (13.0-17.5) gm/dL Hct 44.7 (39.0-53.0) % MCV 100.4 H (80.0-100.0) fL MCH 34.8 (25.0-35.0) pg MCHC 34.6 (31.0-37.0) g/dL RDW 12.4 (11.5-15.5) % Plt Count 219 (150-450) k/uL MPV 7.9 Neutrophils % 71 % Lymphocytes % 15 % Monocytes % 7 % Eosinophils % 5 % Basophils % 1 % Neutrophils # 5.0 (1.3-7.7) k/uL Lymphocytes # 1.0 (1.0-4.8) k/uL Monocytes # 0.5 (0-1.0) k/uL Eosinophils # 0.3 (0-0.7) k/uL Basophils # 0.1 (0-0.2) k/uL Sodium 140 (137-145) mmol/L Potassium 3.9 (3.5-5.1) mmol/L Chloride 107 (98-107) mmol/L Carbon Dioxide 25 (22-30) mmol/L Anion Gap 8 mmol/L BUN 15 (9-20) mg/dL Creatinine 0.76 (0.66-1.25) mg/dL Est GFR (CKD-EPI)AfAm >90 (>60 ml/min/1.73 sqM) Est GFR (CKD-EPI)NonAf 85 (>60 ml/min/1.73 sqM) Glucose 107 H (74-99) mg/dL Plasma Lactic Acid Wilberto 2.0 (0.7-2.0) mmol/L Calcium 9.9 (8.4-10.2) mg/dL Total Bilirubin 1.6 H (0.2-1.3) mg/dL AST 31 (17-59) U/L ALT 19 (4-49) U/L Alkaline Phosphatase 84 (38-126) U/L Total Protein 7.5 (6.3-8.2) g/dL Albumin 4.4 (3.5-5.0) g/dL Disposition Clinical Impression: Inguinal hernia Disposition: HOME SELF-CARE Condition: Fair Instructions (If sedation given, give patient instructions): Inguinal Hernia (ED) Is patient prescribed a controlled substance at d/c from ED?: No Referrals: Benjamín Hensley MD [Medical Doctor] - 1-2 days Time of Disposition: 14:37
[2022-06-09 13:11] LABS: Basophils # (A) 0.1 k/uL (0-0.2); Basophils % (A) 1 %; Eosinophils # (A) 0.3 k/uL (0-0.7); Eosinophils % (A) 5 %; HCT 44.7 % (39.0-53.0); HGB 15.5 gm/dL (13.0-17.5); Lymphocytes % (A) 15 %; MCH 34.8 pg (25.0-35.0); MCHC 34.6 g/dL (31.0-37.0); MCV 100.4 fL (80.0-100.0); Mean Platelet Volume 7.9; Monocytes # (A) 0.5 k/uL (0-1.0); Monocytes % (A) 7 %; Neutrophils % (A) 71 %; Platelet Count 219 k/uL (150-450); RBC 4.45 m/uL (4.30-5.90); RDW 12.4 % (11.5-15.5)
--- NOTE | 2022-06-09 13:49 | US ---
EXAMINATION TYPE: US groin RT DATE OF EXAM: 06/09/2022 COMPARISON: NONE CLINICAL HISTORY: right groin hernia. right groin pain for a few months, was told by other physician he has hernia, patient describes the "bulge" only happens when he stands Probable fat containing herniation seen at site of pain, area at palpable w/o valsalva is 1.6cm, with valsalva area grows to 3.8cm in size Small to moderate-sized fat-containing right inguinal hernia is likely present and more prominent on dynamic imaging as patient describes. IMPRESSION: As above.
[2022-06-09 14:11] LABS: ALT 19 U/L (4-49); AST 31 U/L (17-59); African American GFR (CKD) >90 (>60 ml/min/1.73 sqM); Albumin 4.4 g/dL (3.5-5.0); Alkaline Phosphatase 84 U/L (38-126); Anion Gap 8 mmol/L; Blood Urea Nitrogen 15 mg/dL (9-20); Calcium 9.9 mg/dL (8.4-10.2); Carbon Dioxide 25 mmol/L (22-30); Chloride 107 mmol/L (98-107); Glucose 107 mg/dL (74-99); Non-African American GFR(CKD) 85 (>60 ml/min/1.73 sqM); Potassium 3.9 mmol/L (3.5-5.1); Sodium 140 mmol/L (137-145); Total Bilirubin 1.6 mg/dL (0.2-1.3); Total Protein 7.5 g/dL (6.3-8.2)
[2022-06-09] MEDS ORDERED: traMADol 50 MG STARTER PACK 3 TAB BTL PO STA (14:36)
[2022-06-09 15:02] VITALS: BP 146/78; PULSE 92; RESP 18; TEMP 97.6
== END 2022-06-09 14:50 | disposition home or self-care (01) ==
LOC: EC 11:27
DX: K40.90 Unilateral inguinal hernia, without obstruction or gangrene, not specified as recurrent (principal); I10 Essential (primary) hypertension; I48.91 Unspecified atrial fibrillation; E03.9 Hypothyroidism, unspecified; Z79.890 Hormone replacement therapy; Z79.899 Other long term (current) drug therapy
CPT/HCPCS: 36415; 80053; 83605; 85025; 99284

== ENCOUNTER → 2022-12-16 | Outpatient (CLI) | payer MEDICARE ==
[2022-12-16 15:04] LABS: Basophils # (A) 0.07 X 10*3/uL (0.00-0.10); Eosinophils # (A) 0.43 X 10*3/uL (0.04-0.35); Eosinophils % (A) 6.4 %; HCT 43.6 % (39.6-50.0); HGB 14.4 g/dL (13.0-17.0); Immature Grans, Automated 0.3 %; Lymphocytes # (A) 1.11 X 10*3/uL (0.90-5.00); Lymphocytes % (A) 16.4 %; MCH 33.3 pg (27.0-32.0); MCV 100.7 fL (80.0-97.0); Monocytes # (A) 0.54 X 10*3/uL (0.20-1.00); NRBC Per 100 WBC 0 /100 WBCS (0.0-0.0); Neutrophils % (A) 67.9 %; Platelet Count 232 X 10*3/uL (140-440); RBC 4.33 X 10*6/uL (4.40-5.60); RDW 12.1 % (11.5-14.5); WBC 6.77 X 10*3/uL (4.50-10.00)
[2022-12-16 15:51] LABS: ALT 13 U/L (10-49); AST 21 U/L (14-35); African American GFR (CKD) 82.3 (60.0-200.0); Albumin 4.1 g/dL (3.8-4.9); Albumin/Globulin Ratio 1.49 (1.60-3.17); Alkaline Phosphatase 82 U/L (41-126); BUN/Creat Ratio 14.08 Ratio (12.00-20.00); Blood Urea Nitrogen 13.8 mg/dL (9.0-27.0); Calcium 10.1 mg/dL (8.7-10.3); Carbon Dioxide 27.7 mmol/L (20.0-27.5); Chloride 103 mmol/L (96-109); Chol/HDL Ratio 2.76 Ratio; Globulin 2.8 g/dL (1.6-3.3); Glucose 132 mg/dL (70-110); LDL Cholesterol,Calculated 81.2 mg/dL (0.0-131.0); Potassium 3.6 mmol/L (3.5-5.5); Sodium 144 mmol/L (135-145); Total Protein 6.9 g/dL (6.2-8.2); VLDL Calculation 15.08 mg/dL (5.00-40.00)
== END | disposition home or self-care (01) ==
LOC: LABWHC1 10:57
PROVIDERS: ATTEND Internal Medicine Critical Care Medicine
DX: C61 Malignant neoplasm of prostate (principal); E55.9 Vitamin D deficiency, unspecified; E03.9 Hypothyroidism, unspecified; E78.5 Hyperlipidemia, unspecified; M10.9 Gout, unspecified; I48.91 Unspecified atrial fibrillation
CPT/HCPCS: 36415; 80053; 80061; 82306; 82672; 83036; 84439; 84443; 84481; 85025

== ENCOUNTER → 2023-01-03 | Outpatient (CLI) | payer MEDICARE | END | disposition home or self-care (01) | LOC: LABWHC1 09:45 | PROVIDERS: ATTEND Radiology Radiation Oncology | DX: C61 Malignant neoplasm of prostate (principal); R97.20 Elevated prostate specific antigen [PSA] | CPT/HCPCS: 36415; 84153 ==

== ENCOUNTER 2023-06-16 06:52 | Day surgery (SDC) | payer MEDICARE ==
[~2023-06-16 06:52] MED LIST: ALPRAZolam 0.25 MG TAB PO PRN; ALPRAZolam 0.5 MG TAB PO PRN; HEPARIN SODIUM,PORCINE (1 ML) 2,500 UNIT in SODIUM CHLORIDE 0.9% 250 ML IRRIGATION PRN; HEPARIN SODIUM,PORCINE 10,000 UNIT in SODIUM CHLORIDE 0.9% 1,000 ML IRRIGATION PRN; NITROGLYCERIN SL TABS 0.4 MG TAB SUBLINGUAL PRN
[2023-06-16] MEDS: ASPIRIN 325 MG TAB PO STA (07:18)
[2023-06-16] MEDS: SODIUM CHLORIDE 0.9% 1,000 ML in EMPTY BAG 1 BAG IV SCH ×2 (07:33→12:45)
[2023-06-16 07:41] LABS: Basophils % (A) 1 %; Eosinophils # (A) 0.5 k/uL (0-0.7); Eosinophils % (A) 6 %; HCT 44.9 % (39.0-53.0); HGB 15.2 gm/dL (13.0-17.5); Lymphocytes # (A) 1.5 k/uL (1.0-4.8); Lymphocytes % (A) 18 %; MCH 33.5 pg (25.0-35.0); MCHC 33.9 g/dL (31.0-37.0); MCV 98.9 fL (80.0-100.0); Mean Platelet Volume 8.8; Monocytes # (A) 0.6 k/uL (0-1.0); Monocytes % (A) 6 %; Neutrophils # (A) 5.8 k/uL (1.3-7.7); Neutrophils % (A) 68 %; Platelet Count 225 k/uL (150-450); RBC 4.54 m/uL (4.30-5.90); RDW 12.1 % (11.5-15.5); WBC 8.5 k/uL (3.8-10.6)
[2023-06-16 08:01] LABS: African American GFR (CKD) >90 (>60 ml/min/1.73 sqM); Anion Gap 10 mmol/L; Blood Urea Nitrogen 20 mg/dL (9-20); Calcium 10.2 mg/dL (8.4-10.2); Carbon Dioxide 26 mmol/L (22-30); Chloride 102 mmol/L (98-107); Glucose 129 mg/dL (74-99); Non-African American GFR(CKD) 80 (>60 ml/min/1.73 sqM); Sodium 138 mmol/L (137-145)
[2023-06-16] MEDS ORDERED: VERAPAMIL 2.5 MG/ML 2 ML AMP ONE (09:17)
[2023-06-16] MEDS: LIDOCAINE 1% INJ 10MG/ML (5 ML VIAL-PF) SQ ONE (09:59)
[2023-06-16] MEDS: VERAPAMIL SYRINGE (5 MG/10 ML) INTRAARTER ONE (10:00)
[2023-06-16] MEDS: MIDAZOLAM 2 MG/2 ML VIAL IVP ONE (10:00)
[2023-06-16] MEDS: HEPARIN SODIUM 1,000 UN/ML (10ML VL) IV ONE (10:02)
[2023-06-16] MEDS ORDERED: CLOPIDOGREL 75 MG TAB ONE (10:10)
[2023-06-16] MEDS: CLOPIDOGREL 75 MG TAB PO ONE (10:16)
[2023-06-16] MEDS: IOPAMIDOL-370 100ML BTL INJ ONE (10:40)
[2023-06-16] MEDS ORDERED: NITROGLYCERIN SL TABS 0.4 MG TAB SUBLINGUAL PRN (10:47)
[2023-06-16] MEDS ORDERED: ATROPINE SULFATE 0.1 MG/ML 10ML SYRINGE IV PRN (10:47)
[2023-06-16] MEDS ORDERED: RX INFO: IV CONTRAST WAS GIVEN 1 EACH MISC MISCELLANE PRN (10:47)
[2023-06-16] MEDS ORDERED: ZOLPIDEM 5 MG TAB PO PRN (10:47)
[2023-06-16] MEDS ORDERED: MAG HYDROX/AL HYDROX/SIMETH 30 ML CUP PO PRN (10:47)
--- NOTE | 2023-06-16 10:53 | P.PCN ---
Date of Procedure: 06/16/23 Operative Findings: CARDIAC CATHETERIZATION AND PERCUTANEOUS CORONARY INTERVENTION PERFORMING PHYSICIAN: Albino Carr MD, [facility] PROCEDURE PERFORMED: 1. Selective right and left coronary angiogram 2. Successful stenting of mid RCA using 4.0 x 15 mm Xience NAVEEN with an excellent angiographic results 3 Adjunctive use of intravascular imaging 4. Adjunctive use of ultrasound guided access of the right radial artery INDICATION: This is an 82-year-old gentleman with hypertension and dyslipidemia was experiencing symptoms of shortness of breath and he underwent myocardial perfusion imaging stress test showed an inferior ischemia. COMPLICATION: None APPROACH: Right radial artery LEVEL OF SEDATION: Moderate with the sedation time off 42 minutes PROCEDURE DESCRIPTION: After obtaining an informed consent the patient was brought to the cardiac labeling associate. The right radial artery was cannulated using micropuncture technique under ultrasound guidance a micropuncture wire passed easily then I placed a 6-Hebrew sheath at the right radial artery and they gave the patient 2 mg of verapamil intra-arterial and 5000 use of heparin intravenous. Subsequently selective right and left coronary angiogram performed using JR4 and JL 3.5 catheters. Then I did intervene on the right coronary artery. The procedure was completed was no complication SELECTIVE CORONARY ANGIOGRAM: The right coronary artery: Large caliber vessel and a dominant vessel. The RCA is calcified was critical lesion in the midportion Left main: Is angiographically normal. Bifurcates into an LCx and LAD The left circumflex: Large caliber vessel nondominant vessel. The LCx has mild disease only. It gives rises into the first and second obtuse marginal branches both appear to have mild disease only The left anterior descending artery: Large caliber vessel. The LAD has [id number] nonobstructive coronary artery disease. It gives rises into a diagonal branch which has a 50% lesion in the proximal portion PCI OF THE RCA: Anticoagulation was initiated using heparin with continuous ACT monitoring. Subsequently I did engage the right coronary artery is a JR4 guiding catheter and wire using a run-through wire. Predilatation was performed after intravascular ultrasound was performed and showed calcified RCA with a diameter around 4 mm. Predilatation was performed using 3.0 x 12 millimeter noncompliant balloon after that I deployed a 4.0 x 15 mm stent where the stent was positioned under fluoroscopy guidance and deployed under fluoroscopy guidance with adjunctive use of a guidewire. Postdilatation was performed using 4.5 mm balloon. 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 I performed successful stenting of the RCA as described above #2 Mild to moderate disease involving the left coronary system POSTPROCEDURE MANAGEMENT: 1. Dual antiplatelet therapy using aspirin and Plavix for 6 month 2. Aggressive cholesterol control 3. Follow-up with the patient
[2023-06-16] MEDS: ATORVASTATIN 80 MG TAB PO STA (12:46)
[2023-06-16 13:47] VITALS: BMI 29.2
[2023-06-16] MEDS: VIT A,C & E-LUTEIN-MINERALS 1 EACH TAB PO SCH (20:29)
[2023-06-16] MEDS: atenoloL 25 MG TAB PO SCH (20:29)
[2023-06-16] MEDS: TAMSULOSIN 0.4 MG CAP.ER.24H PO SCH (20:29)
[2023-06-16] MEDS: CHOLECALCIFEROL 125 MCG (5000 IU) TABLET PO SCH (20:30)
[2023-06-17] MEDS: atenoloL 50 MG TAB PO SCH (06:03)
[2023-06-17] MEDS: LOSARTAN 50 MG TAB PO SCH (06:05)
[2023-06-17] MEDS: CLOPIDOGREL 75 MG TAB PO SCH (06:06)
[2023-06-17] MEDS: hydroCHLOROthiazide 25 MG TAB PO SCH (06:07)
[2023-06-17] MEDS: LEVOTHYROXINE 75 MCG TAB PO SCH (06:07)
--- NOTE | 2023-06-17 06:57 | P.DS ---
Providers Attending physician: Albino Carr Consults: 06/16/23 10:47 Consult Physician Routine Consulting Provider: [facility] Consult Reason/Comments: Post Interventional Patient Do you want consulting provider notified?: Already Contacted Primary care physician: [facility] Course: The patient is a pleasant 82-year-old gentleman who underwent yesterday successful stenting of the RCA which was critically diseased. He was seen and evaluated this morning. He is stable. He is asymptomatic. He is mechanically stable. The patient is going to be discharged home on Lasix along with low-dose Xarelto and the patient will be seen in the office in a week Plan - Discharge Summary Discharge Rx Participant: No New Discharge Prescriptions: New Clopidogrel [Plavix] 75 mg PO DAILY #90 tab Rivaroxaban [Xarelto] 15 mg PO DAILY #90 tab Continue Levothyroxine Sodium [Synthroid] 75 mcg PO DAILY@0600 Vit C/E/Zn/Coppr/Lutein/Zeaxan [Preservision Areds 2 Softgel] 1 cap PO BID atenoloL [Tenormin] 50 mg PO DAILY Losartan Potassium [Cozaar] 100 mg PO DAILY Cholecalciferol [Vitamin D3 (125 Mcg = 5000 Iu)] 125 mcg PO HS Tamsulosin HCl [Flomax] 0.4 mg PO HS hydroCHLOROthiazide [Hydrodiuril] 25 mg PO DAILY atenoloL [Tenormin] 25 mg PO HS Discontinued Rivaroxaban [Xarelto] 20 mg PO DAILY@1999 Discharge Medication List Levothyroxine Sodium [Synthroid] 75 mcg PO DAILY@0600 03/07/18 [History] Cholecalciferol [Vitamin D3 (125 Mcg = 5000 Iu)] 125 mcg PO HS 06/09/22 [History] Losartan Potassium [Cozaar] 100 mg PO DAILY 06/09/22 [History] Tamsulosin HCl [Flomax] 0.4 mg PO HS 06/09/22 [History] Vit C/E/Zn/Coppr/Lutein/Zeaxan [Preservision Areds 2 Softgel] 1 cap PO BID 06/09/22 [History] atenoloL [Tenormin] 25 mg PO HS 06/09/22 [History] atenoloL [Tenormin] 50 mg PO DAILY 06/09/22 [History] hydroCHLOROthiazide [Hydrodiuril] 25 mg PO DAILY 06/09/22 [History] Clopidogrel [Plavix] 75 mg PO DAILY #90 tab 06/17/23 [Rx] Rivaroxaban [Xarelto] 15 mg PO DAILY #90 tab 06/17/23 [Rx] Follow up Appointment(s)/Referral(s): Albino Carr MD [STAFF PHYSICIAN] - 06/24/23 4:15 pm Patient Instructions/Handouts: Moderate Sedation (DC), After Radial Heart Catheterization (GEN)
[2023-06-17 09:53] VITALS: BP 125/80; PULSE 76; RESP 17; TEMP 97.5
[2023-06-17] MEDS ORDERED: RIVAROXABAN 15 MG TAB PO SCH (17:30)
== END 2023-06-17 09:43 | disposition home or self-care (01) ==
LOC: CATHCVL 06:52 → 3SCARD 10:40 → CATHCVL 12:54
PROVIDERS: ATTEND Internal Medicine Interventional Cardiology
DX: I25.10 Atherosclerotic heart disease of native coronary artery without angina pectoris (principal); I25.84 Coronary atherosclerosis due to calcified coronary lesion; I10 Essential (primary) hypertension; E78.5 Hyperlipidemia, unspecified; F17.210 Nicotine dependence, cigarettes, uncomplicated; I48.20 Chronic atrial fibrillation, unspecified; I38 Endocarditis, valve unspecified; Z79.899 Other long term (current) drug therapy
CPT/HCPCS: 92978; 93454; 76937; 80048; 85025; C9600; C1887 ×2; C1769 ×2; C1894; C1753; C1874; C1725 ×3; J2250; J2001; J1644; Q9967

== ENCOUNTER → 2023-12-25 | Outpatient (CLI) | payer MEDICARE ==
[2023-12-25 15:45] LABS: Basophils # (A) 0.05 X 10*3/uL (0.00-0.10); Basophils % (A) 0.9 %; Eosinophils # (A) 0.23 X 10*3/uL (0.04-0.35); Eosinophils % (A) 4.3 %; HCT 42.9 % (39.6-50.0); HGB 13.9 g/dL (13.0-17.0); Lymphocytes # (A) 1.01 X 10*3/uL (0.90-5.00); Lymphocytes % (A) 18.8 %; MCH 32.6 pg (27.0-32.0); MCHC 32.4 g/dL (32.0-37.0); MCV 100.7 FL (80.0-97.0); Mean Platelet Volume 9.5 FL (9.5-12.2); Monocytes % (A) 9.3 %; NRBC Per 100 WBC 0 X 10*3/uL (0.00-0.01); Neutrophils # (A) 3.56 X 10*3/uL (1.80-7.70); Neutrophils % (A) 66.3 %; Platelet Count 186 X 10*3/uL (140-440); RBC 4.26 X 10*6/uL (4.40-5.60); RDW 12.5 % (11.5-14.5); WBC 5.37 X 10*3/uL (4.50-10.00)
[2023-12-25 16:16] LABS: ALT 18 U/L (10-49); AST 28 U/L (14-35); Albumin 4.2 g/dL (3.8-4.9); Albumin/Globulin Ratio 1.62 Ratio (1.60-3.17); Alkaline Phosphatase 88 U/L (41-126); Blood Urea Nitrogen 20.9 mg/dL (9.0-27.0); Calcium 10.2 mg/dL (8.7-10.3); Carbon Dioxide 25.7 mmol/L (21.6-31.8); Chloride 105 mmol/L (96-109); Chol/HDL Ratio 2.67 Ratio; Globulin 2.6 g/dL (1.6-3.3); Glucose 122 mg/dL (70-110); PSA Annual Screen 0.127 ng/mL (0.000-4.000); Potassium 3.5 mmol/L (3.5-5.5); Sodium 144 mmol/L (135-145); T4, Free (Free Thyroxine) 1.67 ng/dL (0.80-1.80); Total Bilirubin 1.7 mg/dL (0.3-1.2); Total Protein 6.8 g/dL (6.2-8.2); Uric Acid 6.7 mg/dL (3.7-8.7)
== END | disposition home or self-care (01) ==
LOC: LABWHC1 10:26
PROVIDERS: ATTEND Internal Medicine Critical Care Medicine
DX: Z00.00 Encounter for general adult medical examination without abnormal findings (principal); Z12.5 Encounter for screening for malignant neoplasm of prostate; I10 Essential (primary) hypertension; I48.91 Unspecified atrial fibrillation; E78.5 Hyperlipidemia, unspecified; E03.9 Hypothyroidism, unspecified; M10.9 Gout, unspecified; E55.9 Vitamin D deficiency, unspecified
CPT/HCPCS: 84439; 80061; 80053; 84443; 84550; 85025; 82306; 83036; 36415; G0103

== ENCOUNTER → 2024-01-25 | Outpatient (CLI) | payer MEDICARE | END | disposition home or self-care (01) | LOC: LABWHC1 11:16 | PROVIDERS: ATTEND Radiology Radiation Oncology | DX: Z08 Encounter for follow-up examination after completed treatment for malignant neoplasm (principal); C61 Malignant neoplasm of prostate; R97.20 Elevated prostate specific antigen [PSA] | CPT/HCPCS: 36415; 84153 ==